=== PATIENT | female | born 1975 | race Two or more races ===

== ENCOUNTER → 2020-08-28 20:23 | Outpatient (REF) | payer MEDICAID, SELFPAY | LOC: HO.SL 20:23 | PROVIDERS: PCP Nurse Practitioner Primary Care; Visit Provider Internal Medicine Cardiovascular Disease | DX: G47.30 Sleep apnea, unspecified (principal); I10 Essential (primary) hypertension | CPT/HCPCS: 95810 ==

== ENCOUNTER 2022-04-12 14:34 | Outpatient (REF) | payer MEDICAID, SELFPAY ==
--- NOTE | ~2022-04-12 | MM_ITS ---
EXAMINATION: MM SCREENING DIGITAL BREAST TOMOSYNTHESIS, BILATERAL CLINICAL INFORMATION: Screening. Asymptomatic. Prior outside mammography from [place] over 10 years ago and no longer available. The lifetime risk of breast cancer based on the Tyrer-Cuzick Model is 8%. COMPARISON: None (current study represents new baseline exam). TECHNIQUE: Digital breast tomosynthesis is performed in both the craniocaudal and mediolateral oblique views along with computer-aided detection (CAD). Synthesized 2D images are generated from the tomosynthesis. Additional left MLO view is provided. FINDINGS: The breasts are almost entirely fatty (ACR BI-RADS breast composition Category a). There are no significant masses, abnormal calcifications, or other abnormalities. No architectural abnormality. The axilla and skin contours are unremarkable. MM/MM tomosynthesis screening BI IMPRESSION: No mammographic evidence of malignancy. ASSESSMENT: BI-RADS 1: Negative RECOMMENDATION: Routine annual mammography screening. This patient's information was entered into a reminder system with a target due date for their next mammogram.
== END 2022-04-12 14:35 | disposition home or self-care (01) ==
LOC: HO.MAMMO 14:34
PROVIDERS: PCP Nurse Practitioner Primary Care; Visit Provider Nurse Practitioner Primary Care
DX: Z12.31 Encounter for screening mammogram for malignant neoplasm of breast (principal)
CPT/HCPCS: 77063; 77067

== ENCOUNTER 2022-08-22 12:55 | Outpatient (REF) | payer MEDICAID, SELFPAY ==
[2022-08-23 14:57] LABS: H Pylori Breath Test Negative (Negative)
== END 2022-08-22 12:56 | disposition home or self-care (01) ==
LOC: HO.LNP 12:55
PROVIDERS: PCP Nurse Practitioner Primary Care; Visit Provider Nurse Practitioner Family
DX: Z01.818 Encounter for other preprocedural examination (principal); K21.9 Gastro-esophageal reflux disease without esophagitis; R13.10 Dysphagia, unspecified
CPT/HCPCS: 83013; 99202

== ENCOUNTER 2022-10-03 08:57 | Outpatient (REF) | payer MEDICAID, SELFPAY ==
--- NOTE | ~2022-10-03 | FL_ITS ---
EXAMINATION: FL BARIUM SWALLOW CLINICAL INFORMATION: Dysphagia COMPARISON: None available. TECHNIQUE: Barium swallow examination is performed using fluoroscopic evaluation in addition to multiple fluoroscopic spot views. The patient is imaged both upright and prone and using both thick and thin sulfate along with effervescent granules. Barium tablet was also administered Fluoroscopy time: 0.3 minutes DAP: 3.5 Gycm2 Images: 42 FINDINGS: The swallowing mechanism is normal. No aspiration or penetration. Esophageal motility is normal. There is gastroesophageal reflux. No hernia, mass or stricture is seen. Barium tablet passed freely into the stomach. FL/FL barium swallow IMPRESSION: Gastroesophageal reflux.
== END 2022-10-03 08:58 | disposition home or self-care (01) ==
LOC: HO.XRAY 08:57
PROVIDERS: PCP Nurse Practitioner Primary Care; Visit Provider Otolaryngology
DX: R47.02 Dysphasia (principal)
CPT/HCPCS: 74220

== ENCOUNTER 2024-09-01 16:08 | Outpatient (REF) | payer BC, SELFPAY | END 2024-09-01 16:09 | disposition home or self-care (01) | LOC: HO.MAMMO 16:08 | PROVIDERS: PCP Nurse Practitioner Primary Care; Visit Provider Nurse Practitioner Primary Care | DX: Z12.31 Encounter for screening mammogram for malignant neoplasm of breast (principal) | CPT/HCPCS: 77063; 77067 ==

== ENCOUNTER → 2024-09-01 16:15 | Outpatient (BNV) | payer BC, SELFPAY | PROVIDERS: PCP Nurse Practitioner Primary Care; Visit Provider Internal Medicine | DX: Z12.31 Encounter for screening mammogram for malignant neoplasm of breast (principal) | CPT/HCPCS: 77063; 77067 ==

== ENCOUNTER 2024-10-29 16:22 | Outpatient (REF) | payer BC, SELFPAY ==
--- OUTSIDE RECORDS SUMMARY | 2024-10-29 16:25 | XMS_ITS | Clinical Summary ---
Author Organization [facility] Address [address] [place] [id number] Phone Care Team Providers Care Lumber Buyer Name Role Phone Celeste Ursula REHMAN Primary Care Provider [phone] Social History Tobacco Use Types Packs/Day Years Used Date Smoking Tobacco: Never Assessed Education Answer Date Recorded Are you interested in more education? Not on romulo e 08/03/2022 Are you concerned about learning? Not on file 08/03/2022 No 08/03/2022 No 08/03/2022 Digital Access Answer Date Recorded No 09/04/2022 No 09/04/2022 Reliable internet access at home? Not on file 09/04/2022 Device with a working camera? Not on file Comments Unknown Sex and Gender Information Value Date Recorded Sex Assigned at Not on file Legal Sex Female 8:52 AM EDT Gender Identity Not on file Sexual Orientation Not on file Plan of Treatment Health Maintenance Due Date Last Done Comments LIPID PANEL 1974 DEPRESSION SCREENING 1986 SMOKING Hx and SMOKELESS TOB ACCO SCREENING 11/25/1987 HEPATITIS C SCREENING 1992 HIV ONE-TIME SCREENING (18-6 5 YEARS) 1992 PAP SMEAR 11/25/1995 MAMMOGRAM 2014 COLOGUARD 11/25/2019 COLONOSCOPY 11/25/2019 COLORECTAL CANCER SCREENING 11/25/2019 FIT TEST 11/25/2019 FOBT 11/25/2019 SIGMOIDOSCOPY 11/25/2019 VIRTUAL COLONOSCOPY 11/25/2019 COVID-19 VACCINE (2 2023-2 5 season) 2023 06/22/2020 Adult Td,Tdap Booster 03/20/2029 03/20/2019 HEPATITIS A VACCINES Aged Out No long er eligible based on patient's age to complete this topic HIB VACCINES Aged Out No longer eligi ble based on patient's age to complete this topic MENINGOCOCCAL VACCINES (ACWY) Aged Out No longer eligible based on patient's age to complete this topic MENINGOCOCCAL VACCINES (B) Aged Out N o longer eligible based on patient's age to complete this topic PNEUMOCOCCAL VACCINES (0-49 years) Aged Out No longer eligible based on patient's age to complete this topic Medical Devices Not on file Insurance .[address] [place] [address] C3 ACO C3 ACO C3 ACO C3 ACO C3 ACO C3 ACO C3 ACO C3 ACO Care Teams Lumber Buyer Relationship Specialty Start Date End Date Ursula Celeste NP [address] [place] [id number] PCP - General Family Medicine 08/05/20 Additional Source Comments The information contained in this document represents components of the legal health record. It is not the complete legal health record.[facility]
== END 2024-10-29 16:23 | disposition home or self-care (01) ==
LOC: HO.HHCLNP 16:22
PROVIDERS: Visit Provider Nurse Practitioner Primary Care
DX: Z12.4 Encounter for screening for malignant neoplasm of cervix (principal); Z11.51 Encounter for screening for human papillomavirus (HPV)
CPT/HCPCS: 87626; 88175